=== PATIENT | female | born 1950 | race Caucasian/White ===

== ENCOUNTER 2021-06-01 13:20 | Inpatient (IN) | payer OTHER ==
[~2021-06-01] VITALS: Ht 160 cm; Wt 73.5 kg
[2021-06-01 13:45] VITALS: BP 140/92
--- NOTE | 2021-06-01 14:04 | NUR ---
PATIENT ARRIVED WITH BRUISING OVER LEFT BREAST AND CHEST AREA AND OF RIGHT THIGH DOWN TO CALF AREA PATIENT STATES IT HAS BEEN THERE FOR A FEW WEEKS PATIENT STATES SHE HAS HX OF HEP C. PATIENT RECTAL TEMP OF 90.8 BEAR HUGGER APPLIED WITH WARM BLANKETS AND WARM FLUIDS
[2021-06-01 14:25] LABS: WBC 12.3 thou/uL (4.0-11.0)
[2021-06-01 14:27] LABS: ABSOLUTE NEUTROPHILS 10.8 thou/uL (1.4-8.2); MCH 29.8 pg (26.0-34.0); MCHC 31.3 g/dL (28.0-37.0); MCV 95.2 fL (80.0-100.0); PLATELET COUNT 144 thou/uL (150-400); RDW 21.1 % (10.5-14.5)
[2021-06-01 14:29] LABS: CALCIUM 8.3 mg/dL (8.5-10.1); CREATININE 2.8 mg/dL (0.6-1.0); POTASSIUM 3.3 mmol/L (3.5-5.1)
[2021-06-01 14:35] LABS: TOTAL BILIRUBIN 5.9 mg/dL (0.2-1.0); TOTAL PROTEIN 5.5 g/dL (6.4-8.2)
[2021-06-01 14:36] LABS: HEMATOCRIT 18.1 % (37.0-47.0); HEMOGLOBIN 5.7 gm/dL (12.0-15.0)
[2021-06-01] MEDS ORDERED: SPIRONOLACTONE25 MG PO (15:06)
[2021-06-01] MEDS ORDERED: CEFDINIR300 MG PO (15:07)
[2021-06-01] MEDS ORDERED: LEVOCARNITINE330 MG PO (15:08)
[2021-06-01] MEDS ORDERED: CONSTULOSE10 GM/152 PO (15:08)
[2021-06-01] MEDS ORDERED: PROTONIX40 M2 PO (15:09)
[2021-06-01] MEDS ORDERED: KRISTALOSE20 GM PO (15:11)
[2021-06-01] MEDS ORDERED: LASIX 40 MG TAB40 MG PO (15:12)
[2021-06-01] MEDS ORDERED: POTASSIUM CHLO10 MEQ PO (15:13)
[2021-06-01 15:34] LABS: ANISOCYTOSIS 2+
[2021-06-01 15:35] LABS: MACROCYTES 2+; POIKILOCYTOSIS 2+
[2021-06-01 15:36] LABS: HYPOCHROMASIA 2+; TARGET CELLS 1+
[2021-06-01 16:13] VITALS: BP 115/40; BP 82/22; BP 82/24; BP 93/26; BP 97/22
--- NOTE | 2021-06-01 17:55 | NUR ---
DAUGHTER DANIEL UPDATED
[2021-06-01 18:06] LABS: PROTIME > 90.0 Seconds (10.5-12.1)
[2021-06-01 18:08] LABS: INR > 8.00
[2021-06-01 18:28] VITALS: BP 111/37; BP 115/40; BP 1158/40; BP 118/43; BP 123/40
[2021-06-01 20:41] LABS: URINE BILIRUBIN 1+ (Negative); URINE BLOOD TRACE (Negative); URINE CLARITY CLEAR; URINE COLOR YELLOW; URINE GLUCOSE-RANDOM* NEGATIVE (Negative); URINE KETONES NEGATIVE (Negative); URINE LEUKOCYTES-REFLEX NEGATIVE (Negative); URINE NITRITE-REFLEX NEGATIVE (Negative); URINE PROTEIN (DIPSTICK) NEGATIVE (Negative); URINE SPECIFIC GRAVITY 1.025 (1.005-1.035); URINE UROBILINOGEN 0.2 E.U./dl (0.2-1.0)
[2021-06-01 20:57] LABS: ICTOTEST (BILI CONFIRMATORY) Positive (Negative)
[2021-06-02] VITALS (48 sets, daily range): BP systolic 66–135; BP diastolic 34–99
[2021-06-02 06:10] LABS: HEMATOCRIT 24.6 % (37.0-47.0); HEMOGLOBIN 8.2 gm/dL (12.0-15.0); MCH 30.6 pg (26.0-34.0); MCHC 33.3 g/dL (28.0-37.0); MCV 91.7 fL (80.0-100.0); PLATELET COUNT 142 thou/uL (150-400); RBC 2.68 mil/uL (4.20-5.00); RDW 17.6 % (10.5-14.5)
[2021-06-02 06:24] LABS: PROTIME 22.1 Seconds (10.5-12.1)
[2021-06-02 06:25] LABS: CALCIUM 7.7 mg/dL (8.5-10.1); CREATININE 2.6 mg/dL (0.6-1.0); POTASSIUM 3.1 mmol/L (3.5-5.1)
[2021-06-02 06:26] LABS: ALBUMIN 1.9 g/dL (3.4-5.0); MAGNESIUM 1.6 mg/dL (1.8-2.4); PHOSPHORUS 4.7 mg/dL (2.6-4.7)
[2021-06-02 06:27] LABS: INR 2.1
[2021-06-02 07:53] LABS: NUCLEATED RBCS 3 /100WBC
[2021-06-02 07:54] LABS: PLATELET ESTIMATE NORMAL; POIKILOCYTOSIS 1+; POLYCHROMASIA SLIGHT
--- NOTE | 2021-06-02 12:00 | EKG ---
[facility] [place] [address] ELECTROCARDIOGRAM REPORT Name: LEWIS GOMEZ Room #: 170-7 ADM IN M.R.#: [id number] Admission: 06/01/21 Attend Phys: Sylvester Howard Discharge: Date of : 46 Report #: [id number] [facility] ED Test Date: 2021-06-01 Test Time: 14:56:55 Pat Name: LEWIS GOMEZ Department: Room: 170 Gender: F Water/Wastewater Project Manager: [email or web address] : 1950 Requested By: Wade Stark Order Number: [id number] MD: Danis Farrell Measurements Intervals [place] Rate: 81 P: 0 NV: 62 QRS: -1 QRSD: 83 T: QT: 449 QTc: 522 Interpretive Statements Probable sinus rhythm Multiple premature complexes, vent & supraven Abnormal R-wave progression, early transition Nonspecific T abnrm, anterolateral leads Prolonged QT interval No previous ECG available for comparison Electronically Signed On 06-02-2021 12:00:07 ARMOR SENIOR SERGEANT by Danis Farrell [email or web address] <ELECTRONICALLY SIGNED> By: Danis Farrell MD, [facility] 06/02/21 [facility] 55 55 Danis Farrell MD, [facility] /EPI
--- NOTE | 2021-06-02 20:00 | NUR ---
Assumed care of pt. barely responsive on comfort measures. TITRATING MORPHINE GTT FOR COMFORT. FAMILY AT BEDSIDE. NOT PROGRESSING TOWARD GOALS WILL CONT TO MONITOR.
--- NOTE | 2021-06-02 20:05 | NUR ---
PT ARRIVED FROM ED AT 1345. ICU MONITORING SET UP. PT ARRIVED ON 20MCG/MIN OF ANDIE AND 20 MCG/MIN OF LEVO. MEDICATIONS WERE ABLE TO BE TITRATED DOWN TOLERATED. ANDIE WAS TURN OFF AND LEVO WAS DOWN TO 10MCG/MIN PRIOR TO BEING COMPLETELY SHUT OFF AT 1820. MICROBIOLOGY INSTRUCTOR CAME TO BEDSIDE AND ED WAITNG ROOM TO PRAY WITH FAMILY WHEN COMFORT CARE WAS INITIATED. MORPHINE GTT WAS INCREASED TO 5 MG/HR FOR COMFORT AT THIS TIME.
[2021-06-03] VITALS (15 sets, daily range): BP systolic 74–87; BP diastolic 34–47
--- NOTE | 2021-06-03 04:00 | NUR ---
PT HAS VERY AGONAL BREATHING MORPHINE GTT AT 20 MG ATIVAN PRN
--- NOTE | 2021-06-03 04:15 | NUR ---
PT REMAINS NONRESPONSIVE ON COMFORT CARE MEASURES. TX VIA BED TO [address] [place] ROOM 459 WITH RN. FAMILY ESCORTED WITH PT TO ROOM
--- NOTE | 2021-06-03 07:12 | NUR ---
ASSUMED CARE OF PT AROUND 0400. PT ASSESSED TO BE 71F NONRESPONSIVE COMFORT CARE PT POST HEMORRHAGIC SHOCK. PT WAS TRANSFERRED FROM ICU AND HAS BEEN ON COMFORT CARE SINCE 1600 06/02/21 WITH MORPHINE DRIP AND ATIVAN FOR RELIEF. PT AND FAMILY MADE COMFORTABLE IN ROOM AND TALKED EXTENSIVELY WITH FAMILY, ANSWERING ALL END OF LIFE QUESTIONS AND REASSURING THEM. PT REMAINS ON 20MG/HR MORPHINE DRIP THROUGHOUT REMAINDER OF SHIFT - CHANGED BAGS WITH 0.00ML LEFT OF PREVIOUS BAG AT 0452. TOOK VITALS AT 0640 AND GAVE ANOTHER DOSE OF ATIVAN FOR COMFORT. UPDATED DAY SHIFT RN WITH ALL INFORMATION AND INTRODUCED TO FAMILY PRIOR TO LEAVING. WILL DROP OFF CONTROLLED SUBSTANCE SHEET FOR PREVIOUS BAG OF MORPHINE TO PHARMACY ON THE WAY OUT.
--- NOTE | 2021-06-03 11:28 | NUR ---
ASSUMED PT CARE THIS AM. PT NONVERBAL AND DOES NOT OPEN EYES. PATIENT ON MORPHINE DRIP, WITH PAIN WELL MANAGED. PATIENT IS ON ROOM AIR. FAMILY MEMBERS AT BEDSIDE.
--- NOTE | 2021-06-03 22:53 | NUR ---
ASSUMED CARE OF PT AT 1915. PT IS SLEEPING. NOT AROUSABLE. RESP 4. HR BETWEEN BILLY 60S & LOW 70S. NO OTHER VITALS TAKEN. MORPHINE DRIP CONTINUES AT 20 ML/HR. FREQUENT MONITORING. LAM INTACT WITH DARK YELLOW URINE. SON-IN-LAW & DAUGHTER WAS AT BESIDE. DAUGHTER REQUESTED A PHONE CALL IF CHANGE IN PT CONDITION. THIS NURSE CURRENTLY AT PT BEDSIDE. WILL CONTINUE TO MONITOR.
--- NOTE | 2021-06-04 08:50 | NUR ---
NPO x 3 days. Chart reviewed, pt on comfort care, will defer nutrition evaluation
--- NOTE | 2021-06-04 13:06 | NUR ---
Assumed pt care at 7am.Pt in bed nonresponsive with shallow breathing. Assessment completed.Pt was judith in lower 40's.Around 903am, pt . Nursing summary worksheet complete per protocol. Family came to say goodbye. After family left,pt body was cleansed and bagged. Security called. At 1305,[place] [facility] [place]
[2021-06-18 08:18] LABS: PROTIME 24.6 Seconds (11.5-14.5)
== END 2021-06-04 13:05 | DRG 811 ==
LOC: ER 13:20 → EROBS 16:28 → ICU 06-02 12:21 → 4W 06-03 04:14
PROVIDERS: Emergency Medicine; Nurse Practitioner Family; ADMIT Hospitalist; ATTEND Hospitalist
PROC: 30233N1 Transfusion of Nonautologous Red Blood Cells into Peripheral Vein, Percutaneous Approach (ICD-10-PCS; principal; 2021-06-01)
PROC: 02HV33Z Insertion of Infusion Device into Superior Vena Cava, Percutaneous Approach (ICD-10-PCS; principal; 2021-06-01)
DX: D64.9 Anemia, unspecified (principal); E43 Unspecified severe protein-calorie malnutrition; J96.01 Acute respiratory failure with hypoxia; D68.9 Coagulation defect, unspecified; N17.9 Acute kidney failure, unspecified; E87.2 Acidosis; K72.10 Chronic hepatic failure without coma; I95.9 Hypotension, unspecified; R57.8 Other shock; Z66 Do not resuscitate; K74.60 Unspecified cirrhosis of liver; J44.9 Chronic obstructive pulmonary disease, unspecified; Z88.0 Allergy status to penicillin; Z88.6 Allergy status to analgesic agent; Z51.5 Encounter for palliative care
CPT/HCPCS: 10047; 10078